=== PATIENT | male | born 2000 | race Caucasian/White ===

== ENCOUNTER 2020-05-28 22:06 | Inpatient (IN) | payer OTHER ==
--- NOTE | 2020-05-28 22:53 | ED ---
Psych HPI - General Stated Complaint: Mental health Time Seen by Provider: 05/28/20 22:33 Source: RN notes reviewed, old records reviewed, Caregiver Limitations: no limitations - History of Present Illness Initial Comments: This is a 19-year-old male presents today with his mother for suicidal thoughts and ideas. Patient has no significant medical self is not homicidal is currently calm. Patient states he has significant life stress currently going on. Patient is apprehensive to get any conversation about other issues or problems MD Complaint: suicidal ideation, feels depressed -: days(s) Associated Psychiatric Symptoms: depression, suicidal ideation History of same: No Quality: constant Improves With: none Worsens With: none Context: significant life stressor Associated Symptoms: denies other symptoms Treatments Prior to Arrival: placed on mental health hold If Self Harm: admits thoughts of self harm - Related Data Home Medications Medication Instructions Recorded Confirmed No Known Home Medications 05/28/20 05/28/20 Allergies Allergy/AdvReac Type Severity Reaction Status Date / Time No Known Allergies Allergy Verified 05/28/20 23:04 Review of Systems ROS Statement: Those systems with pertinent positive or pertinent negative responses have been documented in the HPI. ROS Other: All systems not noted in ROS Statement are negative. General Exam General appearance: alert, in no apparent distress Head exam: Present: atraumatic, normocephalic, normal inspection Eye exam: Present: normal appearance, PERRL, EOMI. Absent: scleral icterus, conjunctival injection, periorbital swelling ENT exam: Present: normal exam, mucous membranes moist Neck exam: Present: normal inspection. Absent: tenderness, meningismus, lymphadenopathy Respiratory exam: Present: normal lung sounds bilaterally. Absent: respiratory distress, wheezes, rales, rhonchi, stridor Cardiovascular Exam: Present: regular rate, normal rhythm, normal heart sounds. Absent: systolic murmur, diastolic murmur, rubs, gallop, clicks GI/Abdominal exam: Present: soft, normal bowel sounds. Absent: distended, tenderness, guarding, rebound, rigid Extremities exam: Present: normal inspection, full ROM, normal capillary refill. Absent: tenderness, pedal edema, joint swelling, calf tenderness Back exam: Present: normal inspection Neurological exam: Present: alert, oriented X3, CN II-XII intact Psychiatric exam: Present: normal affect, normal mood Skin exam: Present: warm, dry, intact, normal color. Absent: rash Course Vital Signs 05/28/20 22:51 Temperature 98.5 F Pulse Rate 71 Respiratory 16 Rate Blood Pressure 132/86 O2 Sat by Pulse 97 Oximetry - Reevaluation(s) Reevaluation #1: 05/29/20 00:33 Medical record is reviewed Reevaluation #2: 05/29/20 00:33 Medical clear for psychiatric evaluation Reevaluation #3: 05/29/20 00:33 Patient consents to psychiatric admission Medical Decision Making - Medical Decision Making 19 male to the ER will be admitted for psychiatric evaluation and treatment, seen in however psychiatry here in the emergency department Disposition Clinical Impression: Depression, Suicidal ideation Disposition: TRANSFER TO PSYCH HOSP/UNIT Condition: Fair Is patient prescribed a controlled substance at d/c from ED?: No Referrals: None,Stated [Primary Care Provider] - 1-2 days
[2020-05-29] MEDS ORDERED: MAG HYDROX/AL HYDROX/SIMETH 30 ML CUP PO PRN (03:50)
[2020-05-29] MEDS ORDERED: ACETAMINOPHEN TAB 325 MG TAB PO PRN (03:50)
[2020-05-29] MEDS ORDERED: MAGNESIUM HYDROXIDE 2,400 MG/10 ML CUP PO PRN (03:50)
[2020-05-29] MEDS ORDERED: LORazepam 1 MG TAB PO PRN (03:50)
[2020-05-29] MEDS ORDERED: LORazepam 2 MG/ML INJ IM PRN (03:50)
[2020-05-29] MEDS ORDERED: HALOPERIDOL LACTATE 5 MG/ML 1 ML VIAL IM PRN (03:50)
[2020-05-29] MEDS: NICOTINE 14MG/24HR PATCH TRANSDERM SCH ×2 (04:36→09:01)
[2020-05-29] MEDS ORDERED: NICOTINE POLACRILEX 2 MG GUM BUCCAL PRN (11:13)
[2020-05-29] MEDS: SERTRALINE 50 MG TAB PO SCH (11:53)
--- NOTE | 2020-05-29 11:57 | P.HP ---
Psychiatric H&P - . H&P Date: 05/29/20 History & Physical: Allergies Allergy/AdvReac Type Severity Reaction Status Date / Time No Known Allergies Allergy Verified 05/29/20 04:52 Vital Signs Temp 97.8 F 05/29/20 04:52 Pulse 73 05/29/20 04:52 Resp 16 05/29/20 04:52 BP 153/80 05/29/20 04:52 Pulse Ox 99 05/29/20 04:52 Intake & Output 05/28/20 05/29/20 05/29/20 18:59 06:59 18:59 Weight 55.747 kg Laboratory Last Values Coronavirus (PCR) Not Detected (Not Detectd) 05/29/20 00:45 05/29/20 11:46 IDENTIFYING DATA: Patient is a 19-year-old male currently lives with his parents has 1 kid and works in a restaurant as a cook HPI: Patient presented to the hospital yesterday with his mother for suicidal thoughts and depression. Patient apparently has been going through "life stressors" according to ER report. Patient was seen on the unit and Griebel to speak in the office. He appeared to have a constricted and depressed affect. He also had poor eye contact during the conversation. He states that he split up with his girlfriend 1-1/2 months ago and they have a 2-year-old child together. He states that she took his child even though "I take care of her most of the time" and states that his ex-girlfriend is now demanding child support. He states that he has been trying to work things out with her and to get back together with her however she apparently does not want to be with him any longer and "only use me to have a child". He states that he has been getting into more arguments with her and states that "it all got thrown in my face". He states that he has been mainly bottling it up and claims that yesterday he is feeling very depressed and told his mother that he wanted to kill himself. She she states that she brought him to the hospital afterwards. He states that his mood is "sad" and admits to ongoing depression since he was 7 years old. He states that he also has anxiety. He claims that his sleep concentration and appetite have been very poor. He also admits to ongoing guilt. Patient denies any current suicidal or homicidal ideations intent or plan. At this time patient denies any auditory or visual hallucinations. Patient denies any flight of ideas racing thoughts and increased in goal directed behavior. Patient admits to using marijuana daily and denies any other recreational drugs. He does claim that he uses vape daily. PAST PSYCHIATRIC HISTORY: Patient states that he has history of depression and ADHD. He claims that he used to be on medications for ADHD however stopped taking them because they're affecting his appetite. Patient denies any previous psychiatric hospitalizations. Patient denies any psychiatric outpatient follow- up. He states that he has had 1 overdose suicide attempt in the past however was vague and guarded about it. PMH:denies ALLERGIES: as per EMR CHEMICAL DEPENDENCY HISTORY: as per HPI FAMILY PSYCHIATRIC/SUBSTANCE USE HISTORY: He states that his cousin committed suicide SOCIAL HISTORY: Patient was born and raised "all over [place]" and states that his mother did not want to settle down and live anywhere too long. He states that he completed high school however did not attend any college. He claims that he has never been to [facility] or [facility] in the past. He currently lives with his parents as 1 had and is currently single and works in a restaurant as a cook. MENTAL STATUS EXAM: General Appearance: Patient appears to be thin, long hair, stated age is alert, directable, and guarded/constricted. Patient appears to have poor hygiene and grooming. Behavior: Patient is seated without any agitated behavior. And guarded and constricted Speech: Patient's speech is fluent and nonpressured. Soft tone of voice Mood/Affect: Patient reports their mood is "sad", affect is congruent and constricted. Suicidality/Homicidality: Patient denies having any homicidal ideation intent or plan. Denies any suicidal ideations intent or plan Perceptions: Patient denies any visual hallucinations and denies any auditory hallucinations Though content/process: There is no evidence of any delusional thought content and thought process is linear and goal-directed. Focused on his stressors and his relationship with his ex-girlfriend. Memory and concentration: AOX3, grossly intact for the purposes of this session. Can spell "WORLD" backwards Judgment and insight: poor STRENGTHS/WEAKNESSES: strength is that patient is resilient. Weakness is that patient has poor judgment and is impulsive INTELLECT: average IMPRESSIONS: Major depressive disorder, recurrent, severe without psychotic features Anxiety disorder unspecified Cannabis use disorder Nicotine dependence PLAN: -Patient is admitted under voluntary status to [facility] for stabilization of psychiatric symptoms and safety. Patient has signed adult voluntary form and medication consent and is placed in patient's chart. -Medications : Will start patient on Zoloft 50 mg daily for mood/anxiety. Remeron 15 mg daily at bedtime for mood/appetite/insomnia. -Ativan and Haldol PRN for agitation/aggression -Patient was counselled on substance abuse and desired to cut back on use -Patient was informed of the risks, benefits and side effects of the medication and patient verbally consented to taking the medications. Patient signed med consent form and was placed in chart. -Internal Medicine consult to perform medical evaluation and physical. -NRT - nicotine patch + gum -SW on board for discharge planning. Encourage patient to participate in groups to work on coping skills.
[2020-05-29 12:43] VITALS: BMI 18.1
[2020-05-29] MEDS ORDERED: MIRTAZAPINE 15 MG TAB PO SCH (21:00)
--- NOTE | 2020-05-30 01:03 | P.CONS ---
History of Present Illness - Reason for Consult Consult date: 05/30/20 - History of Present Illness Patient is a 19-year-old male with PMH of tobacco abuse who presented to the emergency room with complaints of depression and suicidal ideation. The patient reports that he recently had some trouble with his relationship where his longtime girlfriend broke up with him. He denied additional complaints. He denied any additional past medical history and does not take any medications at home. Denied chest pain or shortness of breath, fever, chills, nausea, vomiting, abdominal pain, diarrhea. Reports smoking 1 pack of cigarettes per day. Review of Systems Pertinent positives and negatives as discussed in HPI, a complete review of systems was performed and all other systems are negative. Past Medical History Past Medical History: No Reported History History of Any Multi-Drug Resistant Organisms: None Reported Past Surgical History: No Surgical Hx Reported Past Anesthesia/Blood Transfusion Reactions: No Reported Reaction Past Psychological History: ADD/ADHD Smoking Status: Vaper Past Alcohol Use History: None Reported Past Drug Use History: None Reported Medications and Allergies Home Medications Medication Instructions Recorded Confirmed Type No Known Home Medications 05/28/20 05/28/20 History Allergies Allergy/AdvReac Type Severity Reaction Status Date / Time No Known Allergies Allergy Verified 05/29/20 04:52 Physical Exam Vitals: Vital Signs Temp Pulse Pulse Resp BP BP Pulse Ox 05/29/20 04:52 97.8 F 73 16 153/80 99 05/29/20 04:17 98.8 F 73 18 138/87 98 05/28/20 22:51 98.5 F 71 16 132/86 97 Intake and Output 05/29/20 05/29/20 05/29/20 06:59 14:59 22:59 Other: Weight 55.747 kg 55.747 kg General: non toxic, no distress, appears at stated age, normal weight Derm: no unusual rashes/lesions no unusual ecchymoses, warm, dry Head: atraumatic, normocephalic, symmetric Eyes: EOMI, no lid lag, anicteric sclera, pupils equal round reactive to light ENT: Nose and ears atraumatic, no thrush, no pharyngeal erythema Neck: No thyromegaly, no cervical lymphadenopathy, trachea midline, supple Mouth: no lip lesion, mucus membranes moist Cardiovascular: S1S2 reg, no murmur, positive posterior tibial pulse bilateral, no edema, capillary refill less than 2 seconds Lungs: CTA bilateral, no rhonchi, no rales , no accessory muscle use Abdominal: soft, nontender to palpation, no guarding, no appreciable organomegaly, normal bowel sounds Ext: no gross muscle atrophy, muscle strength 5 out of 5 in all 4 extremities grossly, no contractures, Neuro: CN II-XI grossly intact, light touch intact all 4 extremities, finger to nose within normal limits, Psych: Alert, oriented, appropriate affect Assessment and Plan Plan: Depression and suicide -As per psychiatry Tobacco abuse -Advised on the importance of cessation -Nicotine patch when necessary Thank you for allowing us to participate in the care of this patient. We will follow peripherally. Do not hesitate to contact us with questions. Someone can be reached from the [facility] hospitalist group at all hours of the day at [phone].
[2020-05-30 07:02] VITALS: RESP 18
[2020-05-30 08:07] LABS: Basophils # (A) 0.1 k/uL (0-0.2); Basophils % (A) 2 %; Eosinophils # (A) 0.6 k/uL (0-0.7); Eosinophils % (A) 8 %; HCT 47.6 % (39.0-53.0); HGB 16.1 gm/dL (13.0-17.5); Lymphocytes # (A) 2.6 k/uL (1.0-4.8); Lymphocytes % (A) 39 %; MCH 30.5 pg (25.0-35.0); MCHC 33.8 g/dL (31.0-37.0); MCV 90.4 fL (80.0-100.0); Mean Platelet Volume 6.7; Monocytes # (A) 0.5 k/uL (0-1.0); Monocytes % (A) 7 %; Neutrophils # (A) 2.8 k/uL (1.3-7.7); Neutrophils % (A) 42 %; Platelet Count 214 k/uL (150-450); RBC 5.27 m/uL (4.30-5.90); RDW 12.5 % (11.5-15.5); WBC 6.6 k/uL (4.0-11.0)
[2020-05-30 08:20] LABS: ALT 14 U/L (4-49); AST 21 U/L (17-59); African American GFR (CKD) >90 (>60 ml/min/1.73 sqM); Alkaline Phosphatase 53 U/L (38-126); Anion Gap 10 mmol/L; Blood Urea Nitrogen 13 mg/dL (9-20); Calcium 10.2 mg/dL (8.4-10.2); Carbon Dioxide 30 mmol/L (22-30); Chloride 103 mmol/L (98-107); Cholesterol 104 mg/dL (<200); Glucose 90 mg/dL (74-99); HDL Cholesterol 44 mg/dL (40-60); LDL Cholesterol,Calculated 54 mg/dL (0-99); Non-African American GFR(CKD) >90 (>60 ml/min/1.73 sqM); Potassium 4.3 mmol/L (3.5-5.1); Sodium 143 mmol/L (137-145); Total Bilirubin 0.8 mg/dL (0.2-1.3); Total Protein 8.5 g/dL (6.3-8.2); Triglycerides 32 mg/dL (<150)
[2020-05-30] MEDS: SERTRALINE 50 MG TAB PO SCH (08:20)
[2020-05-30] MEDS: NICOTINE 14MG/24HR PATCH TRANSDERM SCH (08:20)
--- NOTE | 2020-05-30 10:31 | P.PN ---
Progress Note - Text Progress Note Date: 05/30/20 Interval History: Patient was seen attending group this morning and was directable and agreeable to speak with fiction writer in the office. He continues to have a constricted affect however states that he is doing better overall today. He states that his mood is experiencing and anxiety have been gradually improving. He states that he has been trying to go to groups and working on his coping skills. He states that he shared a lot about his situation during group with others and got good feedback. He states that he heard a song yesterday while attending activities group which reminded him of his ex-girlfriend and he states that "the Zoloft made him go away" and states that he was able to focus and not be emotional at that time. He claims that he did not sleep that well last night approximately 3-4 hours. He states that he has an improving appetite today. At this time patient denies any suicidal or homical ideations, intent or plan. Patient denies any auditory, visual hallucinations and denies any paranoia or delusions. Patient denies any side effects from the medications and has been compliant with meds. Mental Status Exam: General Appearance: Patient appears to be thin, long hair, stated age is alert, directable, and more cooperative today. Patient appears to have improving hygiene and grooming. Behavior: Patient is seated without any agitated behavior. constricted Speech: Patient's speech is fluent and nonpressured. Soft tone of voice Mood/Affect: Patient reports their mood is "better", affect is congruent and constricted. Suicidality/Homicidality: Patient denies having any homicidal ideation intent or plan. Denies any suicidal ideations intent or plan Perceptions: Patient denies any visual hallucinations and denies any auditory hallucinations Though content/process: There is no evidence of any delusional thought content and thought process is linear and goal-directed. less focused on his stressors today. Memory and concentration: AOX3, grossly intact for the purposes of this session Judgment and insight: Improving mildly Assessment Major depressive disorder, recurrent, severe without psychotic features Anxiety disorder unspecified Cannabis use disorder Nicotine dependence Plan: -Patient continues to meet criteria for inpatient psychiatric admission for symptom stabilization and safety. Patient has signed adult voluntary form and medication consent and was placed in patient's chart. -Medications: Continue with Zoloft 50 mg daily for mood/anxiety. Increased Remeron to 30 mg daily at bedtime for mood/appetite/insomnia. Added Benadryl 25 mg daily at bedtime for sleep. -When necessary Ativan and Haldol for agitation/aggression. -NRT - nicotine patch + gum -SW on board for discharge planning. Encouraged the patient to participate in milieu. SW to reach out to parents today for furether info and to prepare for likely d/c tomorrow.
[2020-05-30 15:22] LABS: Hemoglobin A1C 4.9 % (4.0-6.0)
[2020-05-30 20:02] LABS: Appearance,Urine Clear (Clear); Bilirubin,Urine Negative (Negative); Blood,Urine Negative (Negative); Color,Urine Yellow; Glucose,Urine (UA) Negative (Negative); Ketones,Urine Negative (Negative); Leukocyte Esterase,Urine Negative (Negative); Nitrite,Urine Negative (Negative); Protein,Urine Trace (Negative); Specific Gravity,Urine 1.023 (1.001-1.035); Urobilinogen,Urine <2.0 mg/dL (<2.0)
[2020-05-30] MEDS ORDERED: MIRTAZAPINE 15 MG TAB PO SCH (21:00)
[2020-05-30] MEDS ORDERED: diphenhydrAMINE 25 MG CAP PO SCH (21:00)
[2020-05-31 06:59] VITALS: BP 107/72; PULSE 54; TEMP 98.4
[2020-05-31] MEDS: SERTRALINE 50 MG TAB PO SCH (08:06)
[2020-05-31] MEDS: NICOTINE 14MG/24HR PATCH TRANSDERM SCH (08:06)
[2020-05-31 08:35] LABS: Urine Alcohol Negative (Negative); Urine Barbiturate Negative (Negative); Urine Cocaine Negative (Negative); Urine Methadone Negative (Negative); Urine Opiates Negative (Negative); Urine Phencyclidine Negative (Negative)
--- NOTE | 2020-05-31 09:07 | P.DS ---
Providers Date of admission: 05/29/20 03:33 Expected date of discharge: 05/31/20 Attending physician: Jude Cedillo MD Consults: 05/29/20 03:50 Consult Physician Routine Consulting Provider: Aureliano Physician Consult Reason/Comments: Medical H and P Do you want consulting provider notified?: Yes Primary care physician: Stated None - Discharge Diagnosis(es) (1) Major depressive disorder, recurrent severe without psychotic features Current Visit: Yes Status: Acute Priority: High (2) Anxiety disorder Current Visit: Yes Status: Acute Priority: Medium (3) Cannabis use disorder, mild, abuse Current Visit: Yes Status: Acute Priority: Medium (4) Nicotine dependence Current Visit: Yes Status: Acute Priority: Low Hospital Course: Admission HPI: Admission note was completed by telegraphic typewriter operator chief "Patient is a 19-year-old male currently lives with his parents has 1 kid and works in a restaurant as a cook. Patient presented to the hospital yesterday with his mother for suicidal thoughts and depression. Patient apparently has been going through "life stressors" according to ER report. Patient was seen on the unit and Griebel to speak in the office. He appeared to have a constricted and depressed affect. He also had poor eye contact during the conversation. He states that he split up with his girlfriend 1-1/2 months ago and they have a 2-year-old child together. He states that she took his child even though "I take care of her most of the time" and states that his ex-girlfriend is now demanding child support. He states that he has been trying to work things out with her and to get back together with her however she apparently does not want to be with him any longer and "only use me to have a child". He states that he has been getting into more arguments with her and states that "it all got thrown in my face". He states that he has been mainly bottling it up and claims that yesterday he is feeling very depressed and told his mother that he wanted to k ill himself. She she states that she brought him to the hospital afterwards. He states that his mood is "sad" and admits to ongoing depression since he was 7 years old. He states that he also has anxiety. He claims that his sleep concentration and appetite have been very poor. He also admits to ongoing guilt. Patient denies any current suicidal or homicidal ideations intent or plan. At this time patient denies any auditory or visual hallucinations. Patient denies any flight of ideas racing thoughts and increased in goal directed behavior. Patient admits to using marijuana daily and denies any other recreational drugs. He does claim that he uses vape daily." Hospital course: Upon admission to the unit patient was initially depressed and suicidal. Patient was however directable and agreeable to commence treatment and signed adult voluntary form. Patient got along well with other patients on the unit and followed unit protocol. Patient was compliant with the medications and denied any side effects throughout hospital course. Patient was started on Remeron and titrated up to dose of 30 mg daily at bedtime for mood/insomnia/appetite. Patient was also started on Zoloft 50 mg daily for mood/anxiety. Patient was also started on Benadryl 25 mg daily at bedtime for sleep. Patient spoke of his stressors and engaged in therapy both group and individual. Patient was also seen by medical team for history and physical exam. Throughout the course of the hospitalization patient gradually improved with regards to mood, anxiety, sleep and became more future oriented with improved insight and judgment. On the day of discharge patient denied any suicidal or homicidal ideations intent or plan denied any auditory or visual hallucinations. Patient endorsed wanting to live for his health and family. The patient denied any access to guns or weapons. Patient denied any paranoia and did not endorse any delusions. Patient does have a significant history of substance abuse and was counseled on abstaining from all substances including alcohol and marijuana. Patient elected to do outpatient substance use treatment program through [facility]. Patient was also counseled on the medications and need for regular compliance and was encouraged to follow-up with their outpatient appointment for mental health and also for primary care. Prior to discharge a family meeting will be arranged by social science research assistant to answer any questions and ensure safety upon discharge. Mental status exam: General Appearance: Patient appears to be thin, stated age is alert, pleasant, and cooperative. Patient is in no acute distress and has improved hygiene and grooming Behavior: Patient is calmly seated without any agitated behavior. Speech: Patient's speech is fluent and nonpressured. Mood/Affect: Patient reports their mood is "better", affect is congruent and euthymic. Suicidality/Homicidality: Patient denies having any suicidal or homicidal ideation intent or plan. Perceptions: Patient denies any auditory or visual hallucinations. Though content/process: There is no evidence of any delusional thought content and thought process is linear and goal-directed. more future oriented Memory and concentration: AOX3, grossly intact for the purposes of this session. Can spell "WORLD" backwards correctly. Judgment and insight: improved with guarded prognosis Impression: Major depressive disorder, recurrent, severe without psychotic features Anxiety disorder unspecified Cannabis use disorder mild Nicotine dependence Plan: -Continue with discharge today as patient has improved and stabilized psychiatrically and is not currently an imminent threat to himself and/or others. -Continue medications: Zoloft 50 mg daily for mood/anxiety, Remeron 30 mg daily at bedtime for mood/appetite/insomnia, Benadryl 25 mg daily at bedtime when necessary for sleep. -Patient was counseled on the need for medication compliance and appropriate follow-up at mental health and also primary care for medical issues. Patient verbalized understanding and agreed. -Social work to arrange for and conduct family meeting to ensure safety upon discharge and answer any questions/concerns. Social work also to arrange for patients follow up appointments with [facility] for psychiatric care along with follow up with primary care provider. -Patient counseled on abstaining from recreational drugs and marijuana and alcohol. Was informed/educated on the adverse effects on their physical and mental health. Patient verbally agreed and understood. -Patient was instructed to return to the hospital or seek immediate medical care if their psychiatric or medical symptoms do worsen or reoccur. Allergies Allergy/AdvReac Type Severity Reaction Status Date / Time No Known Allergies Allergy Verified 05/29/20 04:52 Laboratory Results WBC 6.6 k/uL (4.0-11.0) 05/30/20 07:46 RBC 5.27 m/uL (4.30-5.90) 05/30/20 07:46 Hgb 16.1 gm/dL (13.0-17.5) 05/30/20 07:46 Hct 47.6 % (39.0-53.0) 05/30/20 07:46 MCV 90.4 fL (80.0-100.0) 05/30/20 07:46 MCH 30.5 pg (25.0-35.0) 05/30/20 07:46 MCHC 33.8 g/dL (31.0-37.0) 05/30/20 07:46 RDW 12.5 % (11.5-15.5) 05/30/20 07:46 Plt Count 214 k/uL (150-450) 05/30/20 07:46 MPV 6.7 05/30/20 07:46 Neutrophils % 42 % 05/30/20 07:46 Lymphocytes % 39 % 05/30/20 07:46 Monocytes % 7 % 05/30/20 07:46 Eosinophils % 8 % 05/30/20 07:46 Basophils % 2 % 05/30/20 07:46 Neutrophils # 2.8 k/uL (1.3-7.7) 05/30/20 07:46 Lymphocytes # 2.6 k/uL (1.0-4.8) 05/30/20 07:46 Monocytes # 0.5 k/uL (0-1.0) 05/30/20 07:46 Eosinophils # 0.6 k/uL (0-0.7) 05/30/20 07:46 Basophils # 0.1 k/uL (0-0.2) 05/30/20 07:46 Sodium 143 mmol/L (137-145) 05/30/20 07:46 Potassium 4.3 mmol/L (3.5-5.1) 05/30/20 07:46 Chloride 103 mmol/L (98-107) 05/30/20 07:46 Carbon Dioxide 30 mmol/L (22-30) 05/30/20 07:46 Anion Gap 10 mmol/L 05/30/20 07:46 BUN 13 mg/dL (9-20) 05/30/20 07:46 Creatinine 1.03 mg/dL (0.66-1.25) 05/30/20 07:46 Est GFR (CKD-EPI)AfAm >90 (>60 ml/min/1.73 sqM) 05/30/20 07:46 Est GFR (CKD-EPI)NonAf >90 (>60 ml/min/1.73 sqM) 05/30/20 07:46 Glucose 90 mg/dL (74-99) 05/30/20 07:[address] Glu mg/dL 94 05/30/20 07:46 Hemoglobin A1c 4.9 % (4.0-6.0) 05/30/20 07:46 Calcium 10.2 mg/dL (8.4-10.2) 05/30/20 07:46 Total Bilirubin 0.8 mg/dL (0.2-1.3) 05/30/20 07:46 AST 21 U/L (17-59) 05/30/20 07:46 ALT 14 U/L (4-49) 05/30/20 07:46 Alkaline Phosphatase 53 U/L (38-126) 05/30/20 07:46 Total Protein 8.5 g/dL (6.3-8.2) H 05/30/20 07:46 Albumin 5.0 g/dL (3.5-5.0) 05/30/20 07:46 Triglycerides 32 mg/dL (<150) 05/30/20 07:46 Cholesterol 104 mg/dL (<200) 05/30/20 07:46 LDL Cholesterol, Calc 54 mg/dL (0-99) 05/30/20 07:46 HDL Cholesterol 44 mg/dL (40-60) 05/30/20 07:46 TSH 1.420 mIU/L (0.465-4.680) 05/30/20 07:46 Urine Color Yellow 05/30/20 17:48 Urine Appearance Clear (Clear) 05/30/20 17:48 Urine pH 6.0 (5.0-8.0) 05/30/20 17:48 Ur Specific Asher 1.023 (1.001-1.035) 05/30/20 17:48 Urine Protein Trace (Negative) H 05/30/20 17:48 Urine Glucose (UA) Negative (Negative) 05/30/20 17:48 Urine Ketones Negative (Negative) 05/30/20 17:48 Urine Blood Negative (Negative) 05/30/20 17:48 Urine Nitrite Negative (Negative) 05/30/20 17:48 Urine Bilirubin Negative (Negative) 05/30/20 17:48 Urine Urobilinogen <2.0 mg/dL (<2.0) 05/30/20 17:48 Ur Leukocyte Esterase Negative (Negative) 05/30/20 17:48 Urine Opiates Screen Negative ng/mL (Negative) 05/30/20 17:48 Urine Methadone Screen Negative ng/mL (Negative) 05/30/20 17:48 Ur Propoxyphene Screen Negative ng/mL (Negative) 05/30/20 17:48 Urine Barbiturates Negative ng/mL (Negative) 05/30/20 17:48 Ur Phencyclidine Scrn Negative ng/mL (Negative) 05/30/20 17:48 Ur Amphetamine Screen Negative ng/mL (Negative) 05/30/20 17:48 U Benzodiazepines Scrn Negative ng/mL (Negative) 05/30/20 17:48 Urine Cocaine Screen Negative ng/mL (Negative) 05/30/20 17:48 U Cannabinoids Screen Positive ng/mL (Negative) A 05/30/20 17:48 Urine Alcohol Negative mg/dL (Negative) 05/30/20 17:48 Coronavirus (PCR) Not Detected (Not Detectd) 05/29/20 00:45 Vital Signs Temp 98.4 F 05/31/20 06:59 Pulse 54 L 05/31/20 06:59 Resp 18 05/31/20 06:59 BP 107/72 05/31/20 06:59 Pulse Ox 99 05/29/20 04:52 Patient Condition at Discharge: Stable Plan - Discharge Summary Discharge Rx Participant: No New Discharge Prescriptions: New diphenhydrAMINE [Benadryl] 25 mg PO HS 30 Days cap Mirtazapine [Remeron] 30 mg PO HS 30 Days tab Nicotine 14Mg/24Hr Patch [Habitrol] 1 patch TRANSDERM DAILY 14 Days patch Acetaminophen Tab [Tylenol] 650 mg PO Q4HR PRN tab PRN Reason: Pain/Discomfort Sertraline [Zoloft] 50 mg PO DAILY 30 Days tab Discharge Medication List Acetaminophen Tab [Tylenol] 650 mg PO Q4HR PRN tab 05/31/20 [Rx] Mirtazapine [Remeron] 30 mg PO HS 30 Days tab 05/31/20 [Rx] Nicotine 14Mg/24Hr Patch [Habitrol] 1 patch TRANSDERM DAILY 14 Days patch 05/31/20 [Rx] Sertraline [Zoloft] 50 mg PO DAILY 30 Days tab 05/31/20 [Rx] diphenhydrAMINE [Benadryl] 25 mg PO HS 30 Days cap 05/31/20 [Rx] Follow up Appointment(s)/Referral(s): [facility] [Outside] - 1-2 Days (will call you on Wednesday with appt d/t holiday) None,Stated [Primary Care Provider] - 1-2 days Activity/Diet/Wound Care/Special Instructions: Activity and diet as tolerated. Avoid the use of street drugs and alcohol. Take all medications as prescribed. When you are in need of refills on your medications please contact your medical provider and/or outpatient psychiatrist to have this done. Please go to scheduled outpatient appointment for aftercare treatment. If symptoms return or become worse, call the crisis line at and/or go to the nearest emergency room for evaluation. Discharge Disposition: HOME SELF-CARE
== END 2020-05-31 12:10 | disposition home or self-care (01) | DRG 885 ==
LOC: EC 22:06 → 3MHU 05-29 03:33
PROVIDERS: ADMIT Psychiatry & Neurology Psychiatry; ATTEND Psychiatry & Neurology Psychiatry
DX: F33.2 Major depressive disorder, recurrent severe without psychotic features (principal); R45.851 Suicidal ideations; F12.10 Cannabis abuse, uncomplicated; F17.210 Nicotine dependence, cigarettes, uncomplicated; F41.9 Anxiety disorder, unspecified; G47.00 Insomnia, unspecified; Z79.899 Other long term (current) drug therapy; Z91.5 Personal history of self-harm
CPT/HCPCS: 80053; 80061; 80306; 81003; 82075; 83036; 84443; 85025; 87635